=== PATIENT | female | born 1950 | race Caucasian/White ===

== ENCOUNTER 2024-09-22 11:17 | Emergency (ER) | payer OTHER, MEDICARE ==
[~2024-09-22] VITALS: Ht 170.2 cm; Wt 93.4 kg
[2024-09-22 11:36] LABS: BASOPHILS 1.1 % (0-2); EOSINOPHILS 7.5 % (0-6); HEMATOCRIT 43.6 % (35.0-50.0); LYMPHOCYTES 27.7 % (24-44); MCH 33.5 (27-36); MCHC 34.5 g/dl (30-36); MCV 97.1 fl (81-99); MONOCYTES 8.5 % (0-12); NEUTROPHILS 55.2 % (39-80); PLATELET COUNT 432 K/uL (140-440); RBC 4.49 M/ul (4.3-5.7); RDW 13.9 (10.5-15.0)
[2024-09-22] MEDS ORDERED: ELIQUIS5 MG PO (11:46)
[2024-09-22] MEDS ORDERED: LEVOTHYROXINE125 MC1 PO (11:47)
[2024-09-22] MEDS ORDERED: SIMVASTATIN20 MG PO (11:47)
[2024-09-22] MEDS ORDERED: VENTOLIN HFA18 GM INH (11:49)
[2024-09-22 11:53] LABS: ALBUMIN 3.9 g/dL (3.4-5.0); ALCOHOL, MEDICAL <3 ng/dL (<3); ALKALINE PHOSPHATASE 85 U/L (46-116); ALT (SGPT) 33 U/L (14-59); ANION GAP 12.8 (7-21); AST (SGOT) 18 U/L (15-37); BILIRUBIN, TOTAL 0.4 mg/dL (0.2-1.0); BUN/CREATININE RATIO 21.42 (6.0-28.6); CALCIUM 9.5 mg/dL (8.5-10.1); CARBON DIOXIDE 29 mmol/L (21-32); CHLORIDE 102 mmol/L (98-107); CREATININE, SERUM 0.84 mg/dL (0.55-1.02); GLOMERULAR FILTRATION RATE,EST 73 mL/min (>60); POTASSIUM 3.8 mmol/L (3.5-5.1); PROTEIN, TOTAL 7.8 g/dL (6.4-8.2); UREA NITROGEN 18 mg/dL (7-18)
[2024-09-22] MEDS ORDERED: ondansetron HCL 4 MG/2 ML VIAL IV ONE (12:00)
[2024-09-22] MEDS ORDERED: CEPHALEXIN500 MG PO (12:10)
[2024-09-22] MEDS ORDERED: ACETAMINOPHEN 500 MG TAB PO ONE (12:30)
[2024-09-22 12:48] VITALS: BP 133/68
== END 2024-09-22 12:48 | disposition home or self-care (01) ==
LOC: ED 11:17
PROVIDERS: Emergency Medicine
DX: S02.2XXA Fracture of nasal bones, initial encounter for closed fracture (principal); W18.09XA Striking against other object with subsequent fall, initial encounter; Z79.01 Long term (current) use of anticoagulants; Z88.2 Allergy status to sulfonamides; Z91.013 Allergy to seafood; Z79.890 Hormone replacement therapy; Z79.899 Other long term (current) drug therapy
CPT/HCPCS: 36415; 70450; 70486; 72125; 80053; 85025; 96374; 99284-25; A9270; G0480; J2405